=== PATIENT | female | born 1995 | race Caucasian/White ===

== ENCOUNTER 2018-04-30 13:35 | Observation (INO) | payer SELFPAY ==
[~2018-04-30] VITALS: Ht 160 cm; Wt 59.9 kg
[2018-04-30 15:00] LABS: Urine Bacteria MANY /hpf (None Seen); Urine Blood Negative /uL (Negative); Urine Hyaline Cast FEW /lpf (0 - 2); Urine Mucus FEW (None Seen); Urine Specific Gravity 1.023 (1.001-1.035); Urine WBC 21 /hpf (0 - 5)
[2018-04-30] MEDS ORDERED: DOXY25TA9 PO (15:11)
[2018-04-30 15:15] LABS: Alcohol, Urine < 3.0 mg/dL (0-5); Amphetamine Screen, Urine NEGATIVE (NEGATIVE); Barbiturate Scree,Urine NEGATIVE (NEGATIVE); Benzodiazephine Screen, Urine NEGATIVE (NEGATIVE); Cannabinoid Screen, Urine POSITIVE (NEGATIVE); Cocaine Screen, Urine NEGATIVE (NEGATIVE); Phencyclidine Screen, Urine NEGATIVE (NEGATIVE)
[2018-04-30 15:22] LABS: Opiate Scree,Urine NEGATIVE (NEGATIVE)
[2018-04-30] MEDS ORDERED: SODIUM CHLORIDE 0.9% 1,000 ML IV ONE (15:30)
[2018-04-30] MEDS ORDERED: cefTRIAXone SOD 1,000 MG VL IM ONE (15:30)
[2018-04-30] MEDS ORDERED: SODIUM CHLORIDE 0.9% 500 ML IV ONE (15:30)
[2018-04-30] MEDS ORDERED: cefTRIAXone 1GM/50ML D5W 50 ML IV ONE (15:30)
== END 2018-04-30 17:15 | disposition home or self-care (01) | DRG 833 ==
LOC: LDRP 13:35
PROVIDERS: ADMIT Specialist; ATTEND Specialist
DX: O23.42 Unspecified infection of urinary tract in pregnancy, second trimester (principal); O26.892 Other specified pregnancy related conditions, second trimester; R10.30 Lower abdominal pain, unspecified; Z87.891 Personal history of nicotine dependence; Z3A.27 27 weeks gestation of pregnancy
CPT/HCPCS: 59025; 76805; 80307; 81001; 81002; 96365; G0378; J0696; J7030

== ENCOUNTER → 2018-06-02 | Outpatient (CLI) | payer MEDICAID ==
[~2018-06-02] MED LIST: DOXY25TA9 PO
[2018-06-02 07:42] LABS: Basophils # (auto) 0.1 uL; Basophils % (auto) 0.8 % (0.0-2.0); Eosinophils # (auto) 0.1 uL; Eosinophils % (auto) 1.1 % (0.0-7.0); Hematocrit 39.4 % (36.0-46.0); Hemoglobin 13.3 g/dL (12.2-16.2); Lymphocytes # (auto) 2.5 uL; Lymphocytes % (auto) 23.3 % (10.0-50.0); Mean Corpuscular Hemoglobin 32.3 pg (28.0-32.0); Mean Corpuscular Hgb Conc. 33.7 g/dL (32.0-36.0); Mean Corpuscular Volume 95.8 fL (80.0-100.0); Monocytes # (auto) 0.6 uL; Monocytes % (auto) 6.1 % (0.0-12.0); Neutrophils # (auto) 7.3 uL; Neutrophils % (auto) 68.7 % (37.0-80.0); Platelet Count (auto) 242 10^3/uL (140-450); Red Blood Cells 4.11 10^6/uL (4.0-5.20); Red Cell Distribution Width 13.4 % (11.8-14.3); White Blood Cell 10.6 10^3/uL (4.4-10.8)
[2018-06-02 09:02] LABS: Alcohol, Urine < 3.0 mg/dL (0-5); Amphetamine Screen, Urine NEGATIVE (NEGATIVE); Barbiturate Scree,Urine NEGATIVE (NEGATIVE); Benzodiazephine Screen, Urine NEGATIVE (NEGATIVE); Cannabinoid Screen, Urine POSITIVE (NEGATIVE); Cocaine Screen, Urine NEGATIVE (NEGATIVE); Opiate Scree,Urine NEGATIVE (NEGATIVE); Phencyclidine Screen, Urine NEGATIVE (NEGATIVE)
[2018-06-02 09:19] LABS: RUBELLA Positive
== END | disposition home or self-care (01) ==
LOC: LAB 07:26
PROVIDERS: ATTEND Obstetrics & Gynecology
DX: O99.810 Abnormal glucose complicating pregnancy (principal); Z3A.31 31 weeks gestation of pregnancy
CPT/HCPCS: 36415; 80307; 82951; 84144; 84702; 85025; 86703; 86762; 86850; 86900; 86901; 87086; 87340

== ENCOUNTER → 2018-06-30 | Outpatient (CLI) | payer MEDICAID ==
[2018-06-30 16:23] LABS: Basophils # (auto) 0 uL; Basophils % (auto) 0.3 % (0.0-2.0); Eosinophils # (auto) 0.1 uL; Eosinophils % (auto) 1.7 % (0.0-7.0); Hematocrit 40.4 % (36.0-46.0); Hemoglobin 13.4 g/dL (12.2-16.2); Lymphocytes # (auto) 2.1 uL; Mean Corpuscular Hemoglobin 31.1 pg (28.0-32.0); Mean Corpuscular Hgb Conc. 33.2 g/dL (32.0-36.0); Mean Corpuscular Volume 93.7 fL (80.0-100.0); Monocytes # (auto) 0.7 uL; Monocytes % (auto) 7.9 % (0.0-12.0); Neutrophils # (auto) 5.8 uL; Neutrophils % (auto) 66.1 % (37.0-80.0); Nucleated Red Blood Cells % 0.1 %; Platelet Count (auto) 230 10^3/uL (140-450); Red Blood Cells 4.31 10^6/uL (4.0-5.20); Red Cell Distribution Width 13.1 % (11.8-14.3); White Blood Cell 8.8 10^3/uL (4.4-10.8)
== END | disposition home or self-care (01) ==
LOC: LAB 16:11
PROVIDERS: ATTEND Obstetrics & Gynecology
DX: Z34.03 Encounter for supervision of normal first pregnancy, third trimester (principal); Z3A.35 35 weeks gestation of pregnancy
CPT/HCPCS: 36415; 85025; 87081

== ENCOUNTER 2018-07-18 17:30 | Observation (INO) | payer MEDICAID ==
[2018-07-18 18:29] LABS: Urine Bacteria MOD /hpf (None Seen); Urine Blood Negative /uL (Negative); Urine Specific Gravity 1.007 (1.001-1.035); Urine WBC 17 /hpf (0 - 5)
[2018-07-18 18:37] LABS: Alcohol, Urine < 3.0 mg/dL (0-5); Amphetamine Screen, Urine NEGATIVE (NEGATIVE); Barbiturate Scree,Urine NEGATIVE (NEGATIVE); Benzodiazephine Screen, Urine NEGATIVE (NEGATIVE); Cannabinoid Screen, Urine POSITIVE (NEGATIVE); Cocaine Screen, Urine NEGATIVE (NEGATIVE); Opiate Scree,Urine NEGATIVE (NEGATIVE); Phencyclidine Screen, Urine NEGATIVE (NEGATIVE)
== END 2018-07-18 19:06 | disposition home or self-care (01) | DRG 566 ==
LOC: LDRP 17:30
PROVIDERS: ADMIT Specialist; ATTEND Specialist
DX: O42.92 Full-term premature rupture of membranes, unspecified as to length of time between rupture and onset of labor (principal); O99.323 Drug use complicating pregnancy, third trimester; O21.2 Late vomiting of pregnancy; F12.90 Cannabis use, unspecified, uncomplicated; O99.343 Other mental disorders complicating pregnancy, third trimester; F32.9 Major depressive disorder, single episode, unspecified; Z87.891 Personal history of nicotine dependence; Z3A.38 38 weeks gestation of pregnancy
CPT/HCPCS: 59025; 76815; 80307; 81001; 81002; G0378

== ENCOUNTER 2018-07-25 10:06 | Observation (INO) | payer MEDICAID ==
[2018-07-25] MEDS ORDERED: PREN-96 PO (11:32)
== END 2018-07-25 11:20 | disposition home or self-care (01) | DRG 566 ==
LOC: LDRP 10:06
PROVIDERS: ADMIT Obstetrics & Gynecology; ATTEND Obstetrics & Gynecology
DX: O48.0 Post-term pregnancy (principal); O99.323 Drug use complicating pregnancy, third trimester; O62.9 Abnormality of forces of labor, unspecified; O99.343 Other mental disorders complicating pregnancy, third trimester; F32.9 Major depressive disorder, single episode, unspecified; F12.90 Cannabis use, unspecified, uncomplicated; Z3A.40 40 weeks gestation of pregnancy; Z87.891 Personal history of nicotine dependence
CPT/HCPCS: 59025; 76818; 81002; G0378

== ENCOUNTER 2018-07-27 11:19 | Observation (INO) | payer MEDICAID ==
[~2018-07-27 11:19] MED LIST changes: -DOXY25TA9 PO; +PREN-96 PO
== END 2018-07-27 12:55 | disposition home or self-care (01) | DRG 566 ==
LOC: LDRP 11:19
PROVIDERS: ADMIT Obstetrics & Gynecology; ATTEND Obstetrics & Gynecology
DX: O48.0 Post-term pregnancy (principal); O99.323 Drug use complicating pregnancy, third trimester; O62.9 Abnormality of forces of labor, unspecified; O99.343 Other mental disorders complicating pregnancy, third trimester; F32.9 Major depressive disorder, single episode, unspecified; F12.90 Cannabis use, unspecified, uncomplicated; Z87.891 Personal history of nicotine dependence; Z3A.40 40 weeks gestation of pregnancy
CPT/HCPCS: 59025; 76818; 81002; G0378

== ENCOUNTER 2018-07-28 22:05 | Inpatient (IN) | payer MEDICAID | END 2018-07-30 17:21 | disposition home or self-care (01) | LOC: LDRP 22:05 | PROC: 3E033VJ Introduction of Other Hormone into Peripheral Vein, Percutaneous Approach (ICD-10-PCS; principal; ~2018-07-28) | PROC: 10E0XZZ Delivery of Products of Conception, External Approach (ICD-10-PCS; ~2018-07-28) | DX: O80 Encounter for full-term uncomplicated delivery (principal); Z37.0 Single live birth; Z3A.40 40 weeks gestation of pregnancy ==

== ENCOUNTER 2019-04-14 14:57 | Emergency (ER) | payer MEDICAID ==
[~2019-04-14] VITALS: Ht 157.5 cm; Wt 53.1 kg
[2019-04-14 16:27] LABS: Basophils # (auto) 0.1 uL; Eosinophils # (auto) 1.1 uL; Eosinophils % (auto) 11.2 % (0.0-7.0); Hemoglobin 14.5 g/dL (12.2-16.2); Lymphocytes # (auto) 2.3 uL; Lymphocytes % (auto) 22.9 % (10.0-50.0); Mean Corpuscular Hemoglobin 32.6 pg (28.0-32.0); Mean Corpuscular Hgb Conc. 34.5 g/dL (32.0-36.0); Mean Corpuscular Volume 94.4 fL (80.0-100.0); Monocytes # (auto) 0.7 uL; Monocytes % (auto) 6.8 % (0.0-12.0); Neutrophils # (auto) 5.7 uL; Neutrophils % (auto) 58.1 % (37.0-80.0); Platelet Count (auto) 292 10^3/uL (140-450); Red Blood Cells 4.45 10^6/uL (4.0-5.20); Red Cell Distribution Width 11.9 % (11.8-14.3); White Blood Cell 9.9 10^3/uL (4.4-10.8)
[2019-04-14 16:53] LABS: Albumin 3.1 g/dL (3.4-5.0); Amylase 28 U/L (25-115); Anion Gap 4 (5-15); Blood Urea Nitrogen 8 mg/dL (7-18); Calcium 8.8 mg/dL (8.5-10.1); Carbon Dioxide 28 mmol/L (21-32); Chloride 108 mmol/L (98-107); Glucose 107 mg/dL (74-106); Lipase 48 U/L (73-393); Sodium 140 mmol/L (136-145)
[2019-04-14 16:59] LABS: Alanine Aminotransferase 17 U/L (13-56); Alkaline Phosphatase 88 U/L (45-117); Aspartate Aminotransferase 12 U/L (15-37); BUN/Creatinine Ratio 8.7; Bilirubin, Total 0.4 mg/dL (0.2-1.0); GFR African American 96 mL/min; GFR Non-African American 79 mL/min; Total Protein 7.3 g/dL (6.4-8.2)
[2019-04-14 21:04] VITALS: BP 110/87
== END 2019-04-14 21:04 | disposition home or self-care (01) ==
LOC: ER 15:05
DX: J18.9 Pneumonia, unspecified organism (principal); F17.210 Nicotine dependence, cigarettes, uncomplicated; Z87.442 Personal history of urinary calculi
CPT/HCPCS: 36415; 71046; 74176; 80053; 82150; 83690; 84484; 85025; 93005

== ENCOUNTER 2024-08-05 22:33 | Inpatient (IN) | payer MEDICAID ==
[~2024-08-05] VITALS: Ht 157.5 cm; Wt 52.8 kg
[~2024-08-05 22:33] MED LIST changes: +APIX5TAB PO; -PREN-96 PO
[2024-08-05 23:13] LABS: Urine Bacteria None Seen /hpf (None Seen)
[2024-08-05 23:29] LABS: Urine Blood 1+ /uL (Negative); Urine Clarity Turbid (Clear); Urine Color Yellow (Yellow); Urine Mucus FEW (None Seen); Urine Protein, UAD 3+ (Negative); Urine Squamous Epithelial Cell FEW /hpf (<5); Urine Urobilinogen Normal (Negative); Urine WBC 39 /HPF (0-5)
--- NOTE | 2024-08-05 23:54 | DVH ---
Right lower extremity venous duplex Clinical History: Patient has pain at medial thigh right leg Comparison: None Technique: Duplex Doppler evaluation of the deep venous system of the right lower extremity from the common femo ral vein to the popliteal vein including color Doppler and spectral/pulsed waveform analysis was perf ormed. Findings: The common femoral vein demonstrates appropriate compressibility and waveform variability. There is compressibility/patency of the great saphenous vein at the proximal thigh. The femoral vein demonstrates appropriate compressibility and waveform variability. The deep femoral vein demonstrates appropriate compressibility and waveform variability. The popliteal vein demonstrates appropriate compressibility and waveform variability. There is normal compressibility at the tibioperoneal trunk. Occlusive thrombus is seen in the great saphenous vein Impression: 1. Occlusive thrombus is seen in the great saphenous vein.
[2024-08-06] VITALS (7 sets, daily range): BP systolic 101–109; BP diastolic 62–73; PULSE 62–82; RESP 16–23; TEMP 97.6–98.8; O2SAT 96–99
--- NOTE | 2024-08-06 00:10 | ED.PDOC ---
Musculoskeletal HPI Comments This patient is a pleasant 29-year-old female who arrives the ED today for evaluation of right medial thigh concerns for the past day and a half. Patient states she has a unusual rash with the pain. Patient states that this is concerning as she has had a DVT in the other leg that ambulated this presentation at the site. Additionally, patient states that she may be . Patient denies any fever nausea or vomiting. Vital signs were stable on arrival. Chief Complaint: Lower Extremity Time Seen by MD: 22:34 Reviewed Notes: Nurses Notes Allergies: Coded Allergies: NO KNOWN ALLERGIES (Unverified , 07/28/18) Home Meds Active Scripts Apixaban Base (ELIQUIS) 5 Mg Tab, 5 MG PO BID for 30 Days, #60 TAB Prov:ANGE HURT MD 06/03/19 Information Source: Patient, Friend Mode of Arrival: Ambulatory Location: Right Extremity Location: Leg Timing: Days Prehospital treatment: None Severity: Moderate Able to Move Extremity: Yes Bear Weight: Fully Pain: Mild Hand Dominance: Right Mechanism: Spontaneous Circumstances: Spontaneous Onset of Symptoms: Spontaneous DVT Risk Factors: DVT Past Medical History PAST MEDICAL HISTORY: Kidney Stones Past Medical History (Other): DVT Surgical History: Denies all surgeries BOWLING PIN REFINISHER History: No Pertinent BOWLING PIN REFINISHER History Family History Family History: Family hx of DM, Family hx of Cancer Social History Smoker: Cigarettes Alcohol: Occasionally Drugs: Marijuana Lives In: Home Constitutional: denies: chills, diaphoresis, fatigue, fever, malaise, sweats, weakness, others EENTM: denies: blurred vision, double vision, ear bleeding, ear discharge, ear drainage, ear pain, ear ringing, eye pain, eye redness, hearing loss, mouth pain, mouth swelling, nasal discharge, nose bleeding, nose congestion, nose pain, photophobia, tearing, throat pain, throat swelling, voice changes, others Respiratory: denies: cough, hemoptysis, orthopnea, SOB at rest, shortness of breath, SOB with excertion, stridor, wheezing, others Cardiovascular: denies: chest pain, dizzy spells, diaphoresis, Dyspnea on exertion, edema, irregular heart beat, left arm pain, lightheadedness, palpitations, PND, syncope, others Gastrointestinal: denies: abdomen distended, abdominal pain, blood streaked bowels, constipated, diarrhea, dysphagia, difficulty swallowing, hematemesis, melena, nausea, poor appetite, poor fluid intake, rectal bleeding, rectal pain, vomiting, others Genitourinary: denies: abnormal vagina bleeding, burning, dyspareunia, dysuria, flank pain, frequency, hematuria, incontinence, pain, , vagina discharge, urgency, others Neurological: denies: dizziness, fainting, headache, left sided numbness, left sided weakness, numbness, paresthesia, pre-existing deficit, right sided numbness, right sided weakness, seizure, speech problems, tingling, tremors, weakness, others Musculoskeletal: reports: others (Right medial thigh pain); denies: back pain, gout, joint pain, joint swelling, muscle pain, muscle stiffness, neck pain Integumetry: denies: bruises, change in color, change in hair/nails, dryness, laceration, lesions, lumps, rash, wounds, others Allergic/Immunocompromised: denies: Difficulty Healing, Frequent Infections, Hives, Itching, others Hematologic/Lymphatic: denies: anemia, blood clots, easy bleeding, easy bruising, swollen glands, others Endocrine: denies: excessive hunger, excessive sweating, excessive thirst, excessive urination, flushing, intolerance to cold, intolerance to heat, unexplained weight gain, unexplained weight loss, others Psychiatric: denies: anxiety, bipolar disorder, depression, hopeless, panic disorder, schizophrenia, sleepless, suicidal, others Physical Exam General Appearance: Mild Distress (Due to thigh pain and rash concerns), Normal HEENT: Normal ENT Inspection, Pharynx Normal, TMs Normal Neck: Full Range of Motion, Non-Tender, Normal, Normal Inspection Respiratory: Chest Non-Tender, Lungs Clear, No Accessory Muscle Use, No Respiratory Distress, Normal Breath Sounds Cardiovascular: No Edema, No JVD, No Murmur, No Gallop, Normal Peripheral Pulses, Regular Rate/Rhythm Breast Exam: Deferred Gastrointestinal: No Organomegaly, Non Tender, No Pulsatile Mass, Normal Bowel Sounds, Soft Genitalia: Deferred Pelvic: Deferred Rectal: Deferred Extremities: Other (Patient displays a mildly serpiginous oblong rash of the right medial thigh with tenderness throughout. No lymphangitis noted. No definitive signs of infection) Neurologic: Alert, No Motor Deficits, Normal Affect, Normal Mood, No Sensory Deficits Cerebellar Function: Normal Reflexes: Normal Skin: Dry, Normal Color, Warm Lymphatic: No Adenopathy Was a procedure done? Was a procedure done?: No Differential Diagnosis EXT Differential Diagnosis: Deep Vein Thrombosis, Strain, Other (Livedo reticularis, contusion, UTI, ) X-Ray, Labs, Meds, VS Vital Signs Date Time Temp Pulse Resp B/P (MAP) Pulse Ox O2 Delivery O2 Flow Rate FiO2 08/05/24 23:14 99.7 105 20 106/50 (68) 97 99.7 Lab Test 08/05/24 23:01 Range/Units Urine Color Yellow Yellow Urine Clarity Turbid H Clear Urine pH 6.0 5.0-9.0 Urine Specific [place] 1.030 1.001-1.035 Urine Protein 3+ H Negative Urine Ketones Negative Negative Urine Blood 1+ H Negative /uL Urine Nitrite Negative Negative Urine Bilirubin Negative Negative Urine Urobilinogen Normal Negative mg/dL Urine Leukocyte Esterase 1+ Negative /uL Urine RBC 9 0 - 4 /hpf Urine Microscopic WBC 39 H 0-5 /HPF Urine Squamous Epithelial Cells Few <5 /hpf Urine Bacteria None seen None Seen /hpf Urine Mucus Few None Seen Urine Glucose Normal Normal mg/dL Urine Test Positive Negative X-Ray, Labs, Meds, VS Comment All studies performed the ED were evaluated by me personally. Ultrasound confirmed a saphenous vein occlusion of the right medial thigh. Additional studies confirmed a urinary tract infection and positive . I discussed the case with Dr. Riggins in both he and I did not feel safe on a outpatient oral discharge medication as none seem to be safe for . Patient has been dispensed one dose of Lovenox and will be admitted for overnight evaluation and form layer consultation in the morning for proper outpatient blood thinner management. Patient will follow up with primary care provider for continued management once discharge. Time of 1ST Reevaluation: 00:08 Reevaluation 1ST: Improved Consultation: PCP Patient Education/Counseling: Diagnosis, Treatment Family Education/Counseling: Diagnosis, Treatment Departure 1 Departure Time of Disposition: 00:09 Impression: Primary Impression: Saphenous vein occlusion, right Additional Impressions: UTI (urinary tract infection) Disposition: 09 ADMITTED INPATIENT Condition: Stable Discharged With: Self, Friend Critical Care Note Critical Care Time?: No Stability Stability form required: No Heart Score Heart Score: Heart Score Response (Comments) Value History N/A 0 EKG N/A 0 Age N/A 0 Risk Factors N/A 0 Troponin N/A 0 Total 0 CAYETANO APARICIO PAC Aug 06, 2024 00:10
[2024-08-06] MEDS: CEPHALEXIN 250 MG CAP PO ONE (01:46)
[2024-08-06] MEDS: ENOXAPARIN SOD 40 MG/0.4 ML SYRINGE SC ONE (01:48)
[2024-08-06] MEDS: ACETAMINOPHEN 325 MG TAB PO ONE (06:29)
[2024-08-06] MEDS: ENOXAPARIN SOD 100 MG/1 ML SYRINGE SC SCH (10:26)
[2024-08-06] MEDS ORDERED: HYDR-3682 PO (11:15)
[2024-08-06] MEDS ORDERED: ARIP10TA29 PO (11:15)
[2024-08-06] MEDS ORDERED: GABA-1250 PO (11:15)
[2024-08-06] MEDS ORDERED: HYDROcodone-ACET 5/325MG TAB PO PRN (11:15)
[2024-08-06] MEDS ORDERED: MORPHINE SULFATE INJ 2 MG/ml SYRG IV PRN (11:15)
[2024-08-06] MEDS ORDERED: ACETAMINOPHEN 325 MG TAB PO PRN (11:15)
[2024-08-06] MEDS ORDERED: ONDANSETRON HCL 4 MG/2 ML VIAL IV PRN (11:15)
--- NOTE | 2024-08-06 11:21 | DVHHP2 ---
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 Patient reports the anterior right thigh has been painful 5/10 not like and constant. Upon examination patient points to where the pain started from which is between her right knee and right pelvic area. Patient reports that she was on Eliquis years ago but stopped taking it for her DVT. Patient denies any chest pain, recent trauma or injury, shortness of breath, fever, chills, lightheadedness, weakness, dizziness, recent travels, recent sick contacts, , abdominal pain, nausea, vomiting, or diarrhea. Past Medical History DVT in 2020 right lower extremity Past Surgical History: None Family History: Cancer, DM, Other (Dad with diabetes and breast cancer and grandmother with breast cancer) Smoke: <1 pack per day (Vapes) ALCOHOL: occassional Drugs: Marijuana Lives: with Family Domestic Violence: Neg Review of Systems Musculoskeletal: leg pain Allergies: Coded Allergies: NO KNOWN ALLERGIES (Unverified , 07/28/18) Medications Current Medications Medications Dose Ordered Sig/Segundo Route Start Time Stop Time Status Last Admin Dose Admin Enoxaparin Sodium 50 mg Q12HR SC 08/06/24 10:00 08/06/24 10:26 50 MG Ceftriaxone Sodium 50 ml @ 100 mls/hr DAILY@09 IV 08/06/24 11:15 UNV Acetaminophen/ Hydrocodone Bitart 1 tab Q4HP PRN PO 08/06/24 11:15 UNV Ondansetron HCl 4 mg Q4HP PRN IV 08/06/24 11:15 UNV Acetaminophen 650 mg Q6HP PRN PO 08/06/24 11:15 UNV Morphine Sulfate 2 mg Q4HPRN PRN IV 08/06/24 11:15 UNV Exam Vital Signs Vital Signs Date Time Temp Pulse Resp B/P (MAP) Pulse Ox O2 Delivery O2 Flow Rate FiO2 08/06/24 10:30 98.2 78 21 105/63 (77) 98 98.2 08/06/24 07:30 Room Air* 0 21 General Appearance: Alert, Oriented X3, Cooperative, No acute distress HEENT: Atraumatic, PERRLA, EOMI, Mucous membr. moist/pink Respiratory: Clear to auscultation, Normal air movement Cardiovascular: Normal S1, Normal S2, No murmurs Abdominal: Normal bowel sounds, Soft, No tenderness, No hepatospenomegaly, No masses Extremities: No clubbing, No cyanosis, No edema, Normal pulses Skin: No significant lesion Neuro: Normal speech, Strength at 5/5 X4 ext, Normal tone, Sensation intact Psych/Mental Status: Mental status NL, Mood NL Labs/Xrays Labs Test 08/05/24 23:01 Range/Units Urine Color Yellow Yellow Urine Clarity Turbid H Clear Urine pH 6.0 5.0-9.0 Urine Specific [place] 1.030 1.001-1.035 Urine Protein 3+ H Negative Urine Ketones Negative Negative Urine Blood 1+ H Negative /uL Urine Nitrite Negative Negative Urine Bilirubin Negative Negative Urine Urobilinogen Normal Negative mg/dL Urine Leukocyte Esterase 1+ Negative /uL Urine RBC 9 0 - 4 /hpf Urine Microscopic WBC 39 H 0-5 /HPF Urine Squamous Epithelial Cells Few <5 /hpf Urine Bacteria None seen None Seen /hpf Urine Mucus Few None Seen Urine Glucose Normal Normal mg/dL Urine Test Positive Negative Right lower extremity venous duplex Clinical History: Patient has pain at medial thigh right leg Comparison: None Technique: Duplex Doppler evaluation of the deep venous system of the right lower extremity from the common femoral vein to the popliteal vein including color Doppler and spectral/pulsed waveform analysis was performed. Findings: The common femoral vein demonstrates appropriate compressibility and waveform variability. There is compressibility/patency of the great saphenous vein at the proximal thigh. The femoral vein demonstrates appropriate compressibility and waveform variability. The deep femoral vein demonstrates appropriate compressibility and waveform variability. The popliteal vein demonstrates appropriate compressibility and waveform variability. There is normal compressibility at the tibioperoneal trunk. Occlusive thrombus is seen in the great saphenous vein Impression: 1. Occlusive thrombus is seen in the great saphenous vein. Assessment/Plan Assessment/Plan Assessment Acute cystitis Right lower extremity pain secondary to DVT Positive Plan Admit to med surge Antiemetics Pain management IV antibiotics-ceftriaxone HCG Right lower extremity venous study Avoid toxic medications Lovenox Home medications Diet PUD prophylaxis-not indicated no history of GERD or GI bleed Discussed plan of care with patient and nurse Consider electrical linesworker consult if compromise Plan discussed with: Patient My Orders Orders - GILES MOJICA Procedure Category Date Status Time Enoxaparin Sodium PHA 08/06/24 In Process (Lovenox) 10:00 Ceftriaxone 1gm/50ml PHA 08/06/24 Logged D5w (Rocephin) 11:15 Admit ADMIT 08/06/24 Transmitted 11:12 Allergies NATAN 08/06/24 In Process 11:12 Code Status CODE 08/06/24 Transmitted 11:12 Hydrocodone-Acet PHA 08/06/24 Logged 5/325mg Tab ([place] 11:15 Ondansetron Hcl PHA 08/06/24 Logged (Zofran) 11:15 Complete Blood Count LAB 08/07/24 Verified 04:00 Comprehensive LAB 08/07/24 Verified Metabolic Panel 04:00 Cardiac DIET 08/06/24 Transmitted Diet-2gna,Lofat,Lochol Lunch Acetaminophen Tablet PHA 08/06/24 Logged (Tylenol Tablet) 11:15 Morphine Sulfate PHA 08/06/24 Logged Injection 11:15 Date of Service: Aug 06, 2024 Billing Provider: GILES MOJICA Common Visit Codes: [id number] INP/OBS CARE (HIGH) GILES MOJICA Aug 06, 2024 11:21
[2024-08-06] MEDS: cefTRIAXone 1GM/50ML D5W 50 ML IV SCH (12:02)
[2024-08-06] MEDS: ARIPIPRAZOLE 10 MG PO SCH (12:02)
[2024-08-06] MEDS: hydrOXYzine 25 MG TAB or CAP PO SCH (13:41)
[2024-08-06] MEDS: GABAPENTIN 300 MG CAP PO SCH (13:41)
[2024-08-07 05:00] VITALS: BP 96/40; PULSE 67; RESP 18; TEMP 97.9; O2SAT 97
[2024-08-07 08:30] VITALS: BP 104/53; PULSE 67; RESP 16; TEMP 97.9; O2SAT 98
[2024-08-07 08:31] LABS: Basophils # (auto) 0.1 10 ^3/uL (0-0.2); Basophils % (auto) 0.9 % (0.0-2.0); Eosinophils # (auto) 0.6 10 ^3/uL (0-0.8); Eosinophils % (auto) 8.6 % (0.0-7.0); Hematocrit 40.3 % (36.0-46.0); Hemoglobin 13.9 g/dL (12.2-16.2); Lymphocytes # (auto) 2.7 10 ^3/uL (0.4-5.4); Lymphocytes % (auto) 36.5 % (10.0-50.0); Mean Corpuscular Hemoglobin 33.2 pg (28.0-32.0); Mean Corpuscular Hgb Conc. 34.5 g/dL (32.0-36.0); Mean Corpuscular Volume 96.3 fL (80.0-100.0); Monocytes # (auto) 0.5 10 ^3/uL (0-1.3); Monocytes % (auto) 6.9 % (0.0-12.0); Neutrophils # (auto) 3.5 10 ^3/uL (1.6-8.6); Neutrophils % (auto) 47.1 % (37.0-80.0); Platelet Count (auto) 212 10^3/uL (140-450); Red Blood Cells 4.19 10^6/uL (4.0-5.20); Red Cell Distribution Width 12.7 % (11.8-14.3); White Blood Cell 7.4 10^3/uL (4.4-10.8)
[2024-08-07 08:41] LABS: Alanine Aminotransferase < 9 U/L (7-40); Alkaline Phosphatase 59 U/L (46-116); Anion Gap 7 (5-15); Aspartate Aminotransferase 12 U/L (13-40); BUN/Creatinine Ratio 12.7 (10.0-20.0); Bilirubin, Total 0.6 mg/dL (0.2-1.0); Blood Urea Nitrogen 8 mg/dL (9-23); Calcium 8.5 mg/dL (8.7-10.4); Carbon Dioxide 25 mmol/L (20-31); Chloride 108 mmol/L (98-107); Glucose 80 mg/dL (74-106); Potassium 3.8 mmol/L (3.5-5.1); Sodium 140 mmol/L (136-145); Total Protein 5.1 g/dL (5.7-8.2)
[2024-08-07 12:30] VITALS: BP_SYST 101; BP_SYST 120; BP_DIAS 66; BP_DIAS 72; PULSE 75; RESP 16; TEMP 98.2; O2SAT 97
--- NOTE | 2024-08-07 13:04 | DVHPN2 ---
Progress Note - Dictate Date Seen: Aug 07, 2024 Medical Necessity Reason Pt with a Central, PICC or Fol: No Subjective Admitted here with lower extremity DVT. Patient has prior history of DVT was apparently on Eliquis and stopped about a year ago. Currently she is which she apparently found out recently. Receiving Lovenox subQ b.i.d.. vital signs Vital Sign Date Time Temp Pulse Resp B/P (MAP) Pulse Ox O2 Delivery O2 Flow Rate FiO2 08/07/24 08:30 97.9 67 16 104/53 (70) 98 97.9 08/07/24 08:15 Room Air* 0 21 Total Intake and Output 08/06/24 08/06/24 08/07/24 15:00 23:00 07:00 Intake Total 750 ml Output Total 325 ml Balance 425 ml medications Current Medications Medications Dose Ordered Sig/Segundo Route Start Time Stop Time Status Last Admin Dose Admin Enoxaparin Sodium 50 mg Q12HR SC 08/06/24 10:00 08/07/24 08:55 50 MG Ceftriaxone Sodium 50 ml @ 100 mls/hr DAILY@09 IV 08/06/24 11:15 08/07/24 08:56 100 MLS/HR Ondansetron HCl 4 mg Q4HP PRN IV 08/06/24 11:15 Acetaminophen 650 mg Q6HP PRN PO 08/06/24 11:15 objective Alert awake oriented supple no JVD. Heart regular rate and rhythm S1-S2. Lungs fair air movement without rales wheezes. Abdomen soft nontender positive bowel sounds. Extremities no edema positive distal pedal pulses. Neurologically no focal deficits. laboratory and microbiology Laboratory Tests 08/07/24 07:05 Test 08/07/24 07:05 Range/Units Serum Glucose 80 74-106 mg/dL Problems(with codes): (1) Saphenous vein occlusion, right (2) DVT (deep vein thrombosis) in (3) Plan discussed with: Patient Date of Service: Aug 07, 2024 Billing Provider: DARREL RUIZ MD Common Visit Codes: [id number] INP/OBS CARE(MOD) DARREL RUIZ MD Aug 07, 2024 13:04
[2024-08-07 16:30] VITALS: BP 120/78; PULSE 63; RESP 16; TEMP 98.1; O2SAT 97
[2024-08-07 20:00] VITALS: PULSE 64; RESP 17; O2SAT 98
[2024-08-07 21:00] VITALS: BP 111/66; PULSE 64; RESP 17; TEMP 98.4; O2SAT 98
[2024-08-08] VITALS (7 sets, daily range): BP systolic 96–131; BP diastolic 52–70; PULSE 60–84; RESP 14–17; TEMP 36.8; O2SAT 97–100
[2024-08-08 10:41] LABS: Hepatitis B Surface Antigen Negative (Negative); Hepatitis C Antibody Negative (Negative)
[2024-08-08] MEDS ORDERED: ENO100SY SC (16:32)
[2024-08-08] MEDS ORDERED: PREN-96 PO (16:33)
--- NOTE | 2024-08-08 16:34 | DVHDS2 ---
Discharge Summary Date of Admission Aug 06, 2024 at 11:12 Date of Discharge: Aug 08, 2024 Labs/Diagnostic Data: Laboratory Results Test 08/08/24 13:24 08/07/24 07:05 08/06/24 17:54 08/05/24 23:01 Beta HCG, Quantitative 64705.2 mIU/mL (1.5-4.2) White Blood Count 7.4 10^3/uL (4.4-10.8) Red Blood Count 4.19 10^6/uL (4.0-5.20) Hemoglobin 13.9 g/dL (12.2-16.2) Hematocrit 40.3 % (36.0-46.0) Mean Corpuscular Volume 96.3 fL (80.0-100.0) Mean Corpuscular Hemoglobin 33.2 pg (28.0-32.0) Mean Corpuscular Hemoglobin Concent 34.5 g/dL (32.0-36.0) Red Cell Distribution Width 12.7 % (11.8-14.3) Platelet Count 212 10^3/uL (140-450) Mean Platelet Volume 8.5 fL (6.9-10.8) Neutrophils (%) (Auto) 47.1 % (37.0-80.0) Lymphocytes (%) (Auto) 36.5 % (10.0-50.0) Monocytes (%) (Auto) 6.9 % (0.0-12.0) Eosinophils (%) (Auto) 8.6 % (0.0-7.0) Basophils (%) (Auto) 0.9 % (0.0-2.0) Neutrophils # (Auto) 3.5 10 ^3/uL (1.6-8.6) Lymphocytes # (Auto) 2.7 10 ^3/uL (0.4-5.4) Monocytes # (Auto) 0.5 10 ^3/uL (0-1.3) Eosinophils # (Auto) 0.6 10 ^3/uL (0-0.8) Basophils # (Auto) 0.1 10 ^3/uL (0-0.2) Nucleated Red Blood Cells 0.0 % Sodium Level 140 mmol/L (136-145) Potassium Level 3.8 mmol/L (3.5-5.1) Chloride Level 108 mmol/L (98-107) Carbon Dioxide Level 25 mmol/L (20-31) Anion Gap 7 (5-15) Blood Urea Nitrogen 8 mg/dL (9-23) Creatinine 0.63 mg/dL (0.550-1.02) Glomerular Filtration Rate Calc 122 mL/min (>90) BUN/Creatinine Ratio 12.7 (10.0-20.0) Serum Glucose 80 mg/dL (74-106) Calcium Level 8.5 mg/dL (8.7-10.4) Total Bilirubin 0.6 mg/dL (0.2-1.0) Aspartate Amino Transferase (AST) 12 U/L (13-40) Alanine Aminotransferase (ALT) < 9 U/L (7-40) Alkaline Phosphatase 59 U/L (46-116) Total Protein 5.1 g/dL (5.7-8.2) Albumin 3.0 g/dL (3.2-4.8) Hepatitis B Surface Antigen Negative (Negative) Hepatitis C Antibody Negative (Negative) Urine Color Yellow (Yellow) Urine Clarity Turbid (Clear) Urine pH 6.0 (5.0-9.0) Urine Specific [place] 1.030 (1.001-1.035) Urine Protein 3+ (Negative) Urine Ketones Negative (Negative) Urine Blood 1+ /uL (Negative) Urine Nitrite Negative (Negative) Urine Bilirubin Negative (Negative) Urine Urobilinogen Normal mg/dL (Negative) Urine Leukocyte Esterase 1+ /uL (Negative) Urine RBC 9 /hpf (0 - 4) Urine Microscopic WBC 39 /HPF (0-5) Urine Squamous Epithelial Cells Few /hpf (<5) Urine Bacteria None seen /hpf (None Seen) Urine Mucus Few (None Seen) Urine Glucose Normal mg/dL (Normal) Urine Test Positive (Negative) Other Laboratory Tests 08/07/24 07:05 Brief Hx & Hospital Course: Tatum Trevizo is a 29-year-old female with 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 Patient reports the anterior right thigh has been painful 5/10 not like and constant. Upon examination patient points to where the pain started from which is between her right knee and right pelvic area. Patient reports that she was on Eliquis years ago but stopped taking it for her DVT. Patient denies any chest pain, recent trauma or injury, shortness of breath, fever, chills, lightheadedness, weakness, dizziness, recent travels, recent sick contacts, , abdominal pain, nausea, vomiting, or diarrhea. She is admitted and started on Lovenox for her DVT. Patient is also noted to be with a positive beta HCG. Therefore it is felt patient needs to be continued on Lovenox throughout her till she delivers due to risks of warfarin or Eliquis oral anticoagulation. This is discussed with the patient at length. Otherwise while in the hospital with the Lovenox treatment her symptoms have resolved. She is getting out of bed ambulating without any symptoms. Therefore it is felt she could be safely discharged home. Patient is also started on multivitamin. She was advised to follow up with the PCP and referral to OBGYN for routine care as appropriate. I have talked with the patient regarding her hospital diagnosis, treatment she received, DVT ultrasound findings, discharge medications, discharge instructions and follow-up plan of care. She has verbalized understanding of these and agree with the care plan as outlined. Operations or Procedures Right lower extremity venous duplex Clinical History: Patient has pain at medial thigh right leg Comparison: None Technique: Duplex Doppler evaluation of the deep venous system of the right lower extremity from the common femoral vein to the popliteal vein including color Doppler and spectral/pulsed waveform analysis was performed. Findings: The common femoral vein demonstrates appropriate compressibility and waveform variability. There is compressibility/patency of the great saphenous vein at the proximal thigh. The femoral vein demonstrates appropriate compressibility and waveform variability. The deep femoral vein demonstrates appropriate compressibility and waveform variability. The popliteal vein demonstrates appropriate compressibility and waveform variability. There is normal compressibility at the tibioperoneal trunk. Occlusive thrombus is seen in the great saphenous vein Impression: 1. Occlusive thrombus is seen in the great saphenous vein. Condition at Discharge: Stable Final Diagnosis/Problems List Lower extremity DVT, Discharge Disposition: Home Discharge Instruct/Medications Diet: Regular Activity: No Restrictions, As Tolerated Follow Up/Referral: Your primary care doctor next week for management of blood clot in leg and referral to OBGYN for new and further management Medications: As prescribed New Medications: Enoxaparin Sodium (Lovenox) 100 Mg/1 Ml Inj 50 MG SC BIDBRS, #90 INJ 1 Refill Take 50 mg (0.5 mL) injection twice a day Vit W/ Ferrous Fumara ( One Daily) Daily Tab 1 TAB PO DAILY, #90 TAB 3 Refills Continued Medications: Aripiprazole (Aripiprazole) 10 Mg Tab 1 TAB PO DAILY Gabapentin (Gabapentin) 300 Mg Cap 1 CAP PO TID Discontinued Medications: Apixaban Base (Eliquis) 5 Mg Tab 5 MG PO BID for 30 Days, #60 TAB Hydroxyzine Hcl (Hydroxyzine Hcl) 25 Mg Tab 1 TAB PO TID Discharge Statement: "Patient was advised to return to the ER or call 911 if any headaches, dizziness, shortness of breath, chest pain, abdominal pain, bleeding, fevers, or worsening of medical condition. Patient was counseled about treatment plan, medications, possible side effects, patientverbalized understanding. All questions were answered to the best of my ability. This discharge took greater then 30 minutes in planning, reviewing documentation, counseling the patient, and discussing with other team members." ASSESSMENT ASSESSMENT Assessment Lower extremity DVT, Date of Service: Aug 08, 2024 Billing Provider: DARREL RUIZ MD Common Visit Codes: [id number] DISCH DAY <30MIN DARREL RUIZ MD Aug 08, 2024 16:34
== END 2024-08-08 18:20 | disposition home or self-care (01) | DRG 566 ==
LOC: ER 22:33 → OVERFLOW 08-06 11:12 → WEST WING 08-06 18:52
PROVIDERS: ADMIT Hospitalist; ATTEND Hospitalist
DX: O22.31 Deep phlebothrombosis in pregnancy, first trimester (principal); I82.431 Acute embolism and thrombosis of right popliteal vein; O23.11 Infections of bladder in pregnancy, first trimester; F17.210 Nicotine dependence, cigarettes, uncomplicated; N30.00 Acute cystitis without hematuria; Z80.3 Family history of malignant neoplasm of breast; Z83.3 Family history of diabetes mellitus; Z87.442 Personal history of urinary calculi; Z3A.00 Weeks of gestation of pregnancy not specified
CPT/HCPCS: 36415; 80053; 81001; 81025; 84702; 85025; 86803; 87340; 93971; 96372; G0378

== ENCOUNTER 2025-04-14 18:22 | Inpatient (IN) | payer MEDICAID ==
[~2025-04-14] VITALS: Ht 157.5 cm; Wt 59.2 kg
[~2025-04-14 18:22] MED LIST changes: -APIX5TAB PO; +ARIP10TA29 PO; +ENO100SY SC; +GABA-1250 PO; +PREN-96 PO
--- NOTE | 2025-04-14 19:02 | ED.PDOC ---
History of Present Illness HPI Comments 29-year-old female who came to ER for back pains. Patient has recently had the DVT 3 months ago, currently on Lovenox. Patient is just gave via normal vaginal delivery 3 weeks ago. Two days ago, patient has a sharp right lower back pain, radiating to her right shoulder, associated shortness of breath, and worsens when she lays down on her right side. Heating pad applied to the lower back helps temporality. She denies any urinary symptoms. Patient states she missed 1 dose of Lovenox, and she is concerned that she might have a blood clot again. REVIEW OF SYSTEMS: General: No fever, no chills, or fatigue HEENT: No sore throat, no earache, no congestion, no neck pain. Cardiac: No chest pain. No palpitations. Lungs: No shortness of breath, no cough. GI: No nausea, no vomiting, no diarrhea, no constipation, no abdominal pain : No dysuria, frequency, or urgency. No hematuria. Musculoskeletal: No joint pain , no joint swelling, no extremity edema. (+) back pain, (+) right shoulder pain Skin: No rash, no itching. Neuro: No headache, no dizziness, no weakness EXAM: General: Awake, alert and oriented. No acute distress. Skin: Skin in warm, dry and intact. Appropriate color for ethnicity. HEENT: The head is normocephalic and atraumatic. Conjunctivae are clear without exudates or hemorrhage. Sclera is non-icteric. EOM are intact. No signs of nystagmus. Eyelids are normal in appearance without swelling or lesions. Oral mucosa is pink and moist Neck: The neck is supple with normal range of motion. No JVD. Cardiac: Heart rate and rhythm are normal. No murmurs, gallops, or rubs are auscultated. Respiratory: No signs of respiratory distress. Lung sounds are clear in all lobes bilaterally without rales, rhonchi, or wheezes. Abdominal: Abdomen is soft, non-tender without distention. Bowel sounds are present and normoactive in all four quadrants. Extremities: Upper and lower extremities are atraumatic in appearance without deformity or edema. Neurological: The patient is awake, alert and oriented to person, place, and time with normal speech. Speech is clear. There is no facial asymmetry. Psychiatric: Appropriate mood and affect. Good judgement and insight Chief Complaint: Back Pain Time Seen by MD: 19:02 Reviewed Notes: Nurses Notes Allergies: Coded Allergies: NO KNOWN ALLERGIES (Unverified , 07/28/18) Home Meds Active Scripts Vit W/ Ferrous Fumara ( One Daily) Daily Tab, 1 TAB PO DAILY, #90 TAB 3 Refills Prov:DARREL RUIZ MD 08/08/24 Enoxaparin Sodium (Lovenox) 100 Mg/1 Ml Inj, 50 MG SC BIDBRS, #90 INJ 1 Refill Take 50 mg (0.5 mL) injection twice a day Prov:DARREL RUIZ MD 08/08/24 Reported Medications Gabapentin (Gabapentin) 300 Mg Cap, 1 CAP PO TID 08/06/24 Aripiprazole (Aripiprazole) 10 Mg Tab, 1 TAB PO DAILY 08/06/24 Information Source: Patient Mode of Arrival: Ambulatory Past Medical History PAST MEDICAL HISTORY: Kidney Stones, UTI'S Past Medical History (Other): DVT Surgical History: Denies all surgeries BODY FORMER History: No Pertinent BODY FORMER History Family History Family History: Family hx of DM, Family hx of Cancer Social History Smoker: Cigarettes Alcohol: Occasionally Drugs: Marijuana Lives In: Home Was a procedure done? Was a procedure done?: No Differential Dx Considerations may include: Anemia, electrolyte imbalance, blood clots, musculoskeletal pain, urinary tract infection X-Ray, Labs, Meds, VS Vital Signs Date Time Temp Pulse Resp B/P (MAP) Pulse Ox O2 Delivery O2 Flow Rate FiO2 04/14/25 21:40 98.3 04/14/25 20:41 98.4 120 20 120/101 (107) 95 98.4 04/14/25 19:13 120 17 95 Room Air 04/14/25 19:13 99.0 120 17 135/91 (106) 95 99.0 04/14/25 18:25 99.0 146 18 124/95 95 99.0 Lab Test 04/14/25 20:07 04/14/25 19:51 04/14/25 18:56 Range/Units Lactic Acid Level 0.6 0.4-2.0 mmol/L Urine Color Light-yellow Yellow Urine Clarity Turbid H Clear Urine pH 6.5 5.0-9.0 Urine Specific [place] 1.014 1.001-1.035 Urine Protein 3+ H Negative Urine Ketones Negative Negative Urine Blood 2+ H Negative /uL Urine Nitrite Negative Negative Urine Bilirubin Negative Negative Urine Urobilinogen Normal Negative mg/dL Urine Leukocyte Esterase 3+ Negative /uL Urine RBC 24 0 - 4 /hpf Urine Microscopic WBC 106 H 0-5 /HPF Urine Squamous Epithelial Cells Few <5 /hpf Urine Bacteria None seen None Seen /hpf Urine Hyaline Casts Few 0 - 2 /lpf Urine Glucose Normal Normal mg/dL White Blood Count 12.0 H 4.4-10.8 10^3/uL Red Blood Count 4.55 4.0-5.20 10^6/uL Hemoglobin 14.6 12.2-16.2 g/dL Hematocrit 42.5 36.0-46.0 % Mean Corpuscular Volume 93.4 80.0-100.0 fL Mean Corpuscular Hemoglobin 32.1 H 28.0-32.0 pg Mean Corpuscular Hemoglobin Concent 34.3 32.0-36.0 g/dL Red Cell Distribution Width 13.8 11.8-14.3 % Platelet Count 388 140-450 10^3/uL Mean Platelet Volume 7.6 6.9-10.8 fL Neutrophils (%) (Auto) 71.8 37.0-80.0 % Lymphocytes (%) (Auto) 20.9 10.0-50.0 % Monocytes (%) (Auto) 5.0 0.0-12.0 % Eosinophils (%) (Auto) 1.8 0.0-7.0 % Basophils (%) (Auto) 0.5 0.0-2.0 % Neutrophils # (Auto) 8.6 1.6-8.6 10 ^3/uL Lymphocytes # (Auto) 2.5 0.4-5.4 10 ^3/uL Monocytes # (Auto) 0.6 0-1.3 10 ^3/uL Eosinophils # (Auto) 0.2 0-0.8 10 ^3/uL Basophils # (Auto) 0.1 0-0.2 10 ^3/uL Nucleated Red Blood Cells 0.0 % D-Dimer, Quantitative 9.68 H 0.0-0.49 mg/L FEU Sodium Level 141 136-145 mmol/L Potassium Level 3.3 L 3.5-5.1 mmol/L Chloride Level 105 98-107 mmol/L Carbon Dioxide Level 29 20-31 mmol/L Anion Gap 7 5-15 Blood Urea Nitrogen 5 L 9-23 mg/dL Creatinine 0.57 0.550-1.02 mg/dL Glomerular Filtration Rate Calc 125 >90 mL/min BUN/Creatinine Ratio 8.8 L 10.0-20.0 Serum Glucose 102 74-106 mg/dL Calcium Level 8.5 L 8.7-10.4 mg/dL Current Medications Medications (Trade) Dose Ordered Sig/Segundo Route Start Time Stop Time Status Last Admin Sodium Chloride 1,000 ml @ 1,000 mls/hr Q1H ONCE IV 04/14/25 20:00 04/14/25 20:59 DC 04/14/25 20:52 Acetaminophen (Tylenol Tablet) 650 mg ONCE ONCE PO 04/14/25 21:30 04/14/25 21:31 DC 04/14/25 21:40 Potassium Chloride (Klor-Con Tablet) 40 meq ONCE ONCE PO 04/14/25 22:00 04/14/25 22:01 DC 04/14/25 22:22 Time of 1ST Reevaluation: 18:56 Reevaluation 1ST: Unchanged Patient Education/Counseling: Need For Follow Up Family Education/Counseling: No Family Present SEPSIS Sepsis Screen Date sepsis recognized/suspect: Apr 14, 2025 Time Sepsis recognized/suspect: 1826 Recent Procedure: No On Antibiotic Therapy: No Respiratory Rate >20: No Heart Rate >90: Yes Temp<36 C (96.8 F) or >38.3 C: No SBP <90 or MAP <65 mmHG: No New Acute Mental Status Change: No Is the patient on CPAP, BIPAP,: No Physician Orders Saline Lock (04/14/25 19:47) Ct Angio Chest Contrast (04/14/25 19:47) Blood Culture (04/14/25 19:47) Sodium Chloride 0.9% (04/14/25 21:00) Vital Signs Date Time Temp Pulse Resp B/P (MAP) Pulse Ox O2 Delivery O2 Flow Rate FiO2 04/14/25 21:40 98.3 04/14/25 20:41 98.4 120 20 120/101 (107) 95 98.4 04/14/25 19:13 120 17 95 Room Air 04/14/25 19:13 99.0 120 17 135/91 (106) 95 99.0 04/14/25 18:25 99.0 146 18 124/95 95 99.0 Laboratory Tests Test 04/14/25 18:56 04/14/25 20:07 White Blood Count 12.0 10^3/uL (4.4-10.8) H Lactic Acid Level 0.6 mmol/L (0.4-2.0) Medications Medications Dose Ordered Sig/Segundo Route Start Time Stop Time Status Last Admin Dose Admin Acetaminophen 650 mg ONCE ONCE PO 04/14/25 21:30 04/14/25 21:31 DC 04/14/25 21:40 Potassium Chloride 40 meq ONCE ONCE PO 04/14/25 22:00 04/14/25 22:01 DC 04/14/25 22:22 Sodium Chloride 1,000 ml @ 1,000 mls/hr Q1H ONCE IV 04/14/25 20:00 04/14/25 20:59 DC 04/14/25 20:52 Departure 1 Departure Time of Disposition: 23:52 Impression: Primary Impression: Pulmonary embolism Disposition: ADMITTED INPATIENT Condition: Stable Critical Care Note Critical Care Time?: No Stability Stability form required: No Heart Score Heart Score: Heart Score Response (Comments) Value History N/A 0 EKG N/A 0 Age N/A 0 Risk Factors N/A 0 Troponin N/A 0 Total 0 I personally scribed for SHELBI MCCONNELL MD ([email or web address]) on 04/14/25 at 19:02. Electronically submitted by Jah Lara ([email or web address]). SHELBI MCCONNELL MD Apr 14, 2025 19:02
[2025-04-14] MEDS ORDERED: SODIUM CHLORIDE 0.9% 1,000 ML IV ONE (20:00)
[2025-04-14 20:22] LABS: Chloride 105 mmol/L (98-107); Hematocrit 42.5 % (36.0-46.0); Hemoglobin 14.6 g/dL (12.2-16.2); Mean Corpuscular Hemoglobin 32.1 pg (28.0-32.0); Mean Corpuscular Volume 93.4 fL (80.0-100.0); Nucleated Red Blood Cells % 0.0 %; Sodium 141 mmol/L (136-145)
[2025-04-14 20:23] LABS: Anion Gap 7 (5-15); Carbon Dioxide 29 mmol/L (20-31)
[2025-04-14 20:28] LABS: Glucose 102 mg/dL (74-106)
[2025-04-14 20:29] LABS: Calcium 8.5 mg/dL (8.7-10.4); Potassium 3.3 mmol/L (3.5-5.1)
[2025-04-14] MEDS: SODIUM CHLORIDE 0.9% 1,000 ML IV ONE ×2 (20:52→21:43)
[2025-04-14 21:02] LABS: Urine Protein, UAD 3+ (Negative)
[2025-04-14 21:06] LABS: BUN/Creatinine Ratio 8.8 (10.0-20.0); Blood Urea Nitrogen 5 mg/dL (9-23)
[2025-04-14] MEDS: ACETAMINOPHEN 325 MG TAB PO ONE (21:40)
[2025-04-14] MEDS: POTASSIUM CHL 20 Meq TABLET PO ONE (22:22)
[2025-04-14] MEDS: IOHEXOL 350 MG/ML 100ML IJ ONE (22:26)
--- NOTE | 2025-04-14 23:26 | DVH ---
EXAM: CT CT ANGIO CHEST CONTRAST History: CP, SOB, elev D-dimer, r/o PE Comparison Study: None TECHNIQUE: A digital nautical instrument mechanic image was obtained. During the uneventful, intravenous administration of contrast material, multislice data acquisition was obtained through the chest. 3-D postprocessing is performed by technologist including MIP imaging Radiation Dose : CTDI vol 8.5 mGy, DLP 309.0 mGy*cm. FINDINGS: Evaluation is degraded by respiratory motion. Lungs: There are dense opacities most pronounced within the right lower lobe. Scattered additional atelectasis/ scarring is seen throughout the lungs. Pleura: Small right pleural effusion Heart/Great vessels: No cardiomegaly or pericardial effusion. There are filling defects within the distal aspect of the right main pulmonary artery extending into the segmental and subsegmental branches of the right middle and lower lobe pulmonary arteries. No CT evidence of right heart strain. The aorta is unremarkable. Mediastinum: Unremarkable. Soft tissues/Bones: Unremarkable Upper abdomen: Unremarkable. IMPRESSION: 1. Right-sided pulmonary emboli as detailed. No CT evidence of right heart strain. 2. Dense pulmonary opacities most pronounced within the right lower lobe may reflect an infectious/inflammatory process in the appropriate clinical setting. Pulmonary infarcts cannot be entirely excluded. Follow-up to resolution is suggested. 3. Small right pleural effusion. Critical Result: Pumonary Emboli Findings discussed with SHELBI MCCONNELL at 04/14/2025 11:20 PM, and acknowledged receipt and understanding of the findings.
[2025-04-14] MEDS ORDERED: MORPHINE SULFATE INJ 2 MG/ml SYRG IV PRN (23:45)
[2025-04-14] MEDS ORDERED: NITROGLYCERIN 0.4 MG SL TAB SL PRN (23:45)
[2025-04-14] MEDS ORDERED: ONDANSETRON HCL 4 MG/2 ML VIAL IV PRN (23:45)
[2025-04-14] MEDS ORDERED: DOCUSATE SOD 100 MG CAP PO PRN (23:45)
[2025-04-14] MEDS ORDERED: ACETAMINOPHEN 325 MG TAB PO PRN (23:45)
--- NOTE | 2025-04-14 23:52 | DVHHP2 ---
History of Present Illness Reason for Visit: Lower back pain History of Present Illness The patient is a 29-year-old female with past medical history of UTIs, kidney stones, and bilateral leg DVT who presented to [facility] ED with complaint of back pain. Patient reports that she recently had the DVT 3 months ago, currently on Lovenox. Patient states that she just gave via normal vaginal delivery 3 weeks ago, now experiencing sharp right lower back pain, radiating to her right shoulder, associated shortness of breath, and worsens when she lays down on her right side for the past 2 days. Patient was seen and evaluated in the ED, laboratory data shows WBC 12.0, platelets 388, sodium 141, potassium 3.3, BUN 5, creatinine 0.57, GFR 125, glucose 102, calcium 8.5, D- dimer 9.68, blood pressure 120/101, heart rate 112, temperature 98.3 F, O2 saturation 96% on oxygen. CT Angiography revealing right-sided pulmonary emboli; dense pulmonary opacities most pronounced within the right lower lobe may reflect an inflammatory/infectious process, pulmonary infarct can not be enti rely excluded. Patient was started on Lovenox 60 mg q.12, please see medication orders section in the computer. On my assessment, patient denies chest pain, no headache, dizziness, diaphoresis, currently on oxygen, no diarrhea, nausea, vomiting, fever, no chills. Patient was admitted for further evaluation and medical management. Past Medical History Kidney Stones, UTI'S, DVT Past Surgical History Denies all surgeries Family History Reviewed, noncontributory to the management of this case. Past Social History The patient lives at home, smokes cigarettes, drinks alcohol occasionally, uses marijuana. Review of Systems Constitutional: Yes: Weakness; No: Fever, Chills, Sweats, Malaise, Other Eyes: No: Pain, Vision change, Conjunctivae inflammation, Eyelid inflammation, Other, Redness ENT: No: Ear pain, Ear discharge, Nose pain, Nose discharge, Nose congestion, Mouth pain, Mouth swelling, Throat pain, Throat swelling, Other Respiratory: Shortness of breath; No: Cough, Dry, SOB with excertion, Wheezing, Hemoptysis, Pleuritic Pain, Sputum, Wheezing, Other Cardiovascular: No: Chest Pain, Palpitations, Orthopnea, Paroxysmal Noc. Dyspnea, Edema, Lt Headedness, Other Gastrointestinal: No: Nausea, Vomiting, Abdominal Pain, Diarrhea, Constipation, Melena, Hematochezia, Other Genitourinary: No Dysuria, No Frequency, No Incontinence, No Hematuria, No Retention, No Other Musculoskeletal: back pain; No: other, neck pain, shoulder pain, arm pain, hand pain, leg pain, foot pain Skin: No: Rash, Lesions, Jaundice, Bruising, Other Neurological: No: Weakness, Numbness, Incoordination, Change in speech, Confusion, Seizures, Other Allergies: Coded Allergies: NO KNOWN ALLERGIES (Unverified , 07/28/18) Exam Vital Signs Vital Signs Date Time Temp Pulse Resp B/P (MAP) Pulse Ox O2 Delivery O2 Flow Rate FiO2 04/14/25 21:40 98.3 04/14/25 20:41 120 20 120/101 (107) 95 04/14/25 19:13 Room Air General Appearance: Alert, Oriented X3, Cooperative, No acute distress HEENT: Atraumatic, PERRLA, EOMI, Mucous membr. moist/pink Respiratory: Normal air movement, Other (Diminished breath sounds) Cardiovascular: Regular rate, Normal S1, Normal S2, No murmurs Abdominal: Normal bowel sounds, Soft, No tenderness, No hepatospenomegaly, No masses Extremities: No clubbing, No cyanosis, No edema, Normal pulses, No tenderness/swelling Skin: No rashes, No breakdown, No significant lesion Neuro: Normal speech, Normal tone, Sensation intact, Cranial nerves 3-12 NL, Reflexes 2+, Other (Generalized weakness) Psych/Mental Status: Mental status NL, Mood NL Labs/Xrays Labs Test 04/14/25 20:07 04/14/25 19:51 04/14/25 18:56 Range/Units Lactic Acid Level 0.6 0.4-2.0 mmol/L Urine Color Light-yellow Yellow Urine Clarity Turbid H Clear Urine pH 6.5 5.0-9.0 Urine Specific [place] 1.014 1.001-1.035 Urine Protein 3+ H Negative Urine Ketones Negative Negative Urine Blood 2+ H Negative /uL Urine Nitrite Negative Negative Urine Bilirubin Negative Negative Urine Urobilinogen Normal Negative mg/dL Urine Leukocyte Esterase 3+ Negative /uL Urine RBC 24 0 - 4 /hpf Urine Microscopic WBC 106 H 0-5 /HPF Urine Squamous Epithelial Cells Few <5 /hpf Urine Bacteria None seen None Seen /hpf Urine Hyaline Casts Few 0 - 2 /lpf Urine Glucose Normal Normal mg/dL White Blood Count 12.0 H 4.4-10.8 10^3/uL Red Blood Count 4.55 4.0-5.20 10^6/uL Hemoglobin 14.6 12.2-16.2 g/dL Hematocrit 42.5 36.0-46.0 % Mean Corpuscular Volume 93.4 80.0-100.0 fL Mean Corpuscular Hemoglobin 32.1 H 28.0-32.0 pg Mean Corpuscular Hemoglobin Concent 34.3 32.0-36.0 g/dL Red Cell Distribution Width 13.8 11.8-14.3 % Platelet Count 388 140-450 10^3/uL Mean Platelet Volume 7.6 6.9-10.8 fL Neutrophils (%) (Auto) 71.8 37.0-80.0 % Lymphocytes (%) (Auto) 20.9 10.0-50.0 % Monocytes (%) (Auto) 5.0 0.0-12.0 % Eosinophils (%) (Auto) 1.8 0.0-7.0 % Basophils (%) (Auto) 0.5 0.0-2.0 % Neutrophils # (Auto) 8.6 1.6-8.6 10 ^3/uL Lymphocytes # (Auto) 2.5 0.4-5.4 10 ^3/uL Monocytes # (Auto) 0.6 0-1.3 10 ^3/uL Eosinophils # (Auto) 0.2 0-0.8 10 ^3/uL Basophils # (Auto) 0.1 0-0.2 10 ^3/uL Nucleated Red Blood Cells 0.0 % D-Dimer, Quantitative 9.68 H 0.0-0.49 mg/L FEU Sodium Level 141 136-145 mmol/L Potassium Level 3.3 L 3.5-5.1 mmol/L Chloride Level 105 98-107 mmol/L Carbon Dioxide Level 29 20-31 mmol/L Anion Gap 7 5-15 Blood Urea Nitrogen 5 L 9-23 mg/dL Creatinine 0.57 0.550-1.02 mg/dL Glomerular Filtration Rate Calc 125 >90 mL/min BUN/Creatinine Ratio 8.8 L 10.0-20.0 Serum Glucose 102 74-106 mg/dL Calcium Level 8.5 L 8.7-10.4 mg/dL PATIENT: BRUNO MACKAY ACCT: [id number] UNIT: [id number] : 1995 LOC: ER ROOM / BED: / AGE / SEX: 29 / F ADM STATUS: REG ER SERVICE 46 ORDERING PHYSICIAN: SHELBI MCCONNELL MD PROCEDURE(s): CTACH - CT ANGIO CHEST CONTRAST REASON: CP, SOB, elev D-dimer, r/o PE ORDER NUMBER(s): [id number], ACCESSION NUMBER(s): [id number] EXAM: CT CT ANGIO CHEST CONTRAST History: CP, SOB, elev D-dimer, r/o PE Comparison Study: None TECHNIQUE: A digital real estate leasing agent image was obtained. During the uneventful, intravenous administration of contrast material, multislice data acquisition was obtained through the chest. 3-D postprocessing is performed by technologist including MIP imaging Radiation Dose : CTDI vol 8.5 mGy, DLP 309.0 mGy*cm. FINDINGS: Evaluation is degraded by respiratory motion. Lungs: There are dense opacities most pronounced within the right lower lobe. Scattered additional atelectasis/scarring is seen throughout the lungs. Pleura: Small right pleural effusion Heart/Great vessels: No cardiomegaly or pericardial effusion. There are filling defects within the distal aspect of the right main pulmonary artery extending into the segmental and subsegmental branches of the right middle and lower lobe pulmonary arteries. No CT evidence of right heart strain. The aorta is unremarkable. Mediastinum: Unremarkable. Soft tissues/Bones: Unremarkable Upper abdomen: Unremarkable. IMPRESSION: 1. Right-sided pulmonary emboli as detailed. No CT evidence of right heart strain. 2. Dense pulmonary opacities most pronounced within the right lower lobe may reflect an infectious/inflammatory process in the appropriate clinical setting. Pulmonary infarcts cannot be entirely excluded. Follow-up to resolution is suggested. 3. Small right pleural effusion. Critical Result: Pumonary Emboli SEPSIS Sepsis Screen Date sepsis recognized/suspect: Apr 14, 2025 Time Sepsis recognized/suspect: 1915 Recent Procedure: Yes On Antibiotic Therapy: Yes Respiratory Rate >20: No Heart Rate >90: Yes Temp<36 C (96.8 F) or >38.3 C: No SBP <90 or MAP <65 mmHG: No New Acute Mental Status Change: No Is the patient on CPAP, BIPAP,: No Physician Orders Saline Lock (04/14/25 19:47) Ct Angio Chest Contrast (04/14/25 19:47) Blood Culture (04/14/25 19:47) Sodium Chloride 0.9% (04/14/25 21:00) Potassium Er Tablet (Klor-Con Tablet) (04/14/25 23:45) Ceftriaxone Ivpb Rocephin (04/15/25 09:00) Ceftriaxone Ivpb Rocephin (04/14/25 23:45) Chest Without Contrast (04/14/25 23:43) Enoxaparin Sodium (Lovenox) (04/15/25 10:00) Admit (04/14/25 23:43) Allergies (04/14/25 23:43) Code Status (04/14/25 23:43) Sodium Chloride Lock (Saline Lock Ns) (04/15/25 06:00) Oxygen Per Hour (04/14/25 23:43) Hydrocodone-Acet 5/325mg Tab ([place] 5/32 (04/14/25 23:45) Ondansetron Hcl (Zofran) (04/14/25 23:45) Docusate Sodium Capsule (Colace Capsule) (04/14/25 23:45) Complete Blood Count (04/15/25 04:00) Comprehensive Metabolic Panel (04/15/25 04:00) Cardiac Diet-2gna,Lofat,Lochol (04/15/25 Breakfast) Condition: Serious (04/14/25 23:43) Acetaminophen Tablet (Tylenol Tablet) (04/14/25 23:45) Vital Signs Date Time Temp Pulse Resp B/P (MAP) Pulse Ox O2 Delivery O2 Flow Rate FiO2 04/14/25 21:40 98.3 04/14/25 20:41 98.4 120 20 120/101 (107) 95 98.4 04/14/25 19:13 120 17 95 Room Air 04/14/25 19:13 99.0 120 17 135/91 (106) 95 99.0 04/14/25 18:25 99.0 146 18 124/95 95 99.0 Laboratory Tests Test 04/14/25 18:56 04/14/25 20:07 White Blood Count 12.0 10^3/uL (4.4-10.8) H Lactic Acid Level 0.6 mmol/L (0.4-2.0) Medications Medications Dose Ordered Sig/Segundo Route Start Time Stop Time Status Last Admin Dose Admin Acetaminophen 650 mg ONCE ONCE PO 04/14/25 21:30 04/14/25 21:31 DC 04/14/25 21:40 650 MG Potassium Chloride 40 meq ONCE ONCE PO 04/14/25 22:00 04/14/25 22:01 DC 04/14/25 22:22 40 MEQ Sodium Chloride 1,000 ml @ 1,000 mls/hr Q1H ONCE IV 04/14/25 20:00 04/14/25 20:59 DC 04/14/25 20:52 1,000 MLS/HR Assessment/Plan Assessment/Plan Pulmonary embolism Acute respiratory distress Low back pain Generalized weakness Plan 1. Admit to telemetry unit 2. Breathing treatment 3. Pain control management 4. Management of fluids and electrolytes 5. Consultation for hospitalist 6. Diagnostic tests CT Angiography 7. DVT prophylaxis-on Lovenox 8. Repeat labs CBC, CMP in a.m. 9. Continue with current medical management 10. Treatment plan discussed with patient and RN. Patient verbalized understanding. Plan discussed with: Patient, Other (Generalized weakness) My Orders Orders - ROVERTO MOSES DNP Procedure Category Date Status Time Potassium Er Tablet PHA 04/14/25 Verified (Klor-Con Tablet) 23:45 Ceftriaxone Ivpb PHA 04/15/25 Verified Rocephin 09:00 Ceftriaxone Ivpb PHA 04/14/25 Verified Rocephin 23:[address] 04/14/25 Verified 23:43 Enoxaparin Sodium PHA 04/15/25 Verified (Lovenox) 10:00 Admit ADMIT 04/14/25 Verified 23:43 Allergies NATAN 04/14/25 Verified 23:43 Code Status CODE 04/14/25 Verified 23:43 Sodium Chloride Lock PHA 04/15/25 Verified (Saline Lock Ns) 06:00 Oxygen Per Hour RT 04/14/25 Verified 23:43 Hydrocodone-Acet PHA 04/14/25 Verified 5/325mg Tab ([place] 23:45 Ondansetron Hcl PHA 04/14/25 Verified (Zofran) 23:45 Docusate Sodium PHA 04/14/25 Verified Capsule (Colace 23:45 Complete Blood Count LAB 04/15/25 Verified 04:00 Comprehensive LAB 04/15/25 Verified Metabolic Panel 04:00 Cardiac DIET 04/15/25 Verified Diet-2gna,Lofat,Lochol Breakfast Condition: Serious NATAN 04/14/25 Verified 23:43 Acetaminophen Tablet PHA 04/14/25 Verified (Tylenol Tablet) 23:45 Problem List: (1) Pulmonary embolism (2) Acute respiratory distress (3) Lower back pain (4) Generalized weakness Date of Service: Apr 14, 2025 Billing Provider: ROVERTO MOSES DNP Common Visit Codes: [id number] INP/OBS CARE (HIGH) ROVERTO MOSES DNP Apr 14, 2025 23:52
[2025-04-15] VITALS (8 sets, daily range): BP systolic 115–124; BP diastolic 79–87; PULSE 84–116; RESP 16–22; TEMP 97.5–99.3; O2SAT 91–96
[2025-04-15] MEDS: POTASSIUM CHL 20 Meq TABLET PO ONE (00:21)
[2025-04-15] MEDS: HYDROcodone-ACET 5/325MG TAB PO PRN (02:11)
[2025-04-15 03:27] LABS: Hematocrit 38.8 % (36.0-46.0); Hemoglobin 13.2 g/dL (12.2-16.2); Mean Corpuscular Hemoglobin 32.2 pg (28.0-32.0); Mean Corpuscular Volume 94.3 fL (80.0-100.0); Nucleated Red Blood Cells % 0.1 %
[2025-04-15 03:48] LABS: Alkaline Phosphatase 102 U/L (46-116); Anion Gap 8 (5-15); Carbon Dioxide 28 mmol/L (20-31); Chloride 106 mmol/L (98-107); Glucose 86 mg/dL (74-106); Potassium 4.0 mmol/L (3.5-5.1); Sodium 142 mmol/L (136-145)
[2025-04-15 04:01] LABS: Alanine Aminotransferase < 9 U/L (7-40); Albumin 2.8 g/dL (3.2-4.8); BUN/Creatinine Ratio 10.9 (10.0-20.0); Bilirubin, Total < 0.2 mg/dL (0.2-1.0); Blood Urea Nitrogen < 5 mg/dL (9-23); Calcium 7.9 mg/dL (8.7-10.4); Total Protein 5.2 g/dL (5.7-8.2)
[2025-04-15] MEDS ORDERED: NIFE1TAB31 PO (05:40)
[2025-04-15] MEDS ORDERED: ENOX60IN7 SC (05:40)
[2025-04-15] MEDS ORDERED: SERT25TA28 PO (05:40)
[2025-04-15] MEDS ORDERED: FER325T PO (05:40)
[2025-04-15] MEDS ORDERED: LEVO50TA7 PO (05:40)
[2025-04-15] MEDS: ENOXAPARIN SOD 60 MG/0.6 ML SYRINGE SC ONE (05:45)
[2025-04-15] MEDS: SODIUM CHLOR 0.9% PF (SALINE LOCK) 10ML VIAL/SYR IV SCH (06:09)
[2025-04-15] MEDS ORDERED: ENOXAPARIN SOD 60 MG/0.6 ML SYRINGE SC ONE (16:00)
--- NOTE | 2025-04-15 17:39 | DVHPN2 ---
Subjective Patient without complaints of chest pain or shortness for breath at present. Getting out of bed to the chair. Patient has a history of DVT and PEs. Apparently she is on Lovenox injections for this due to being and delivered her baby recently. Changes from previous H/P or p: No Changes Eyes: No Pain, No Vision change, No Conjunctivae inflammation, No Eyelid inflammation, No Other, No Redness ENT: No Ear pain, No Ear discharge, No Nose pain, No Nose discharge, No Nose congestion, No Mouth pain, No Mouth swelling, No Throat pain, No Throat swelling, No Other Cardiovascular: No Chest Pain, No Palpitations, No Orthopnea, No Paroxysmal Noc. Dyspnea, No Edema, No Lt Headedness, No Other Respiratory: No Cough, No Dry; Shortness of breath; No SOB with excertion, No Wheezing, No Hemoptysis, No Pleuritic Pain, No Sputum, No Other Gastrointestinal: No Nausea, No Vomiting, No Abdominal Pain, No Diarrhea, No Constipation, No Melena, No Hematochezia, No Other Genitourinary: No Dysuria, No Frequency, No Incontinence, No Hematuria, No Retention, No Other Musculoskeletal: No other, No neck pain, No shoulder pain, No arm pain; back pain; No hand pain, No leg pain, No foot pain Skin: No Rash, No Lesions, No Jaundice, No Bruising, No Other Objective Vitals Vital Signs Date Time Temp Pulse Resp B/P (MAP) Pulse Ox O2 Delivery O2 Flow Rate FiO2 04/15/25 17:00 98.5 86 17 119/87 (98) 94 98.5 04/15/25 08:00 Room Air* 0 21 Intake/Output Intake and Output 04/15/25 07:00 Intake Total 0 ml Balance 0 ml Intake Oral 0 ml Exam Alert awake oriented x3. Comfortable in bed without distress. HEENT neck supple no JVD. Heart regular rate and rhythm. S1 plus S2. Lungs fair air movement without rales wheezes. Abdomen soft nontender positive bowel sounds. Extremities no edema positive pulses Medications Current Medications Medications Dose Ordered Sig/Segundo Route Start Time Stop Time Status Last Admin Dose Admin Ceftriaxone Sodium 50 ml @ 100 mls/hr DAILY@2100 IV 04/15/25 21:00 Enoxaparin Sodium 60 mg Q12HR SC 04/15/25 22:00 Sodium Chloride 10 ml Q8HR IV 04/15/25 06:00 04/15/25 13:53 10 ML Acetaminophen/ Hydrocodone Bitart 1 tab Q4HP PRN PO 04/14/25 23:45 04/15/25 10:36 1 TAB Ondansetron HCl 4 mg Q4HP PRN IV 04/14/25 23:45 Docusate Sodium 100 mg BIDPRN PRN PO 04/14/25 23:45 Acetaminophen 650 mg Q6HP PRN PO 04/14/25 23:45 Enoxaparin Sodium 60 mg Q12HR SC 04/15/25 22:00 UNV Laboratory Results Laboratory Tests 04/15/25 03:04 Chemistry Test 04/14/25 18:56 04/15/25 03:04 Calcium Level 8.5 mg/dL (8.7-10.4) L 7.9 mg/dL (8.7-10.4) L Albumin 2.8 g/dL (3.2-4.8) L Total Protein 5.2 g/dL (5.7-8.2) L Coagulation Test 04/14/25 18:56 D-Dimer, Quantitative 9.68 mg/L FEU (0.0-0.49) H LFT Test 04/15/25 03:04 Alanine Aminotransferase (ALT) < 9 U/L (7-40) Alkaline Phosphatase 102 U/L (46-116) Aspartate Amino Transferase (AST) 15 U/L (13-40) Total Bilirubin < 0.2 mg/dL (0.2-1.0) L Urinalysis Test 04/14/25 19:51 Urine Color Light-yellow (Yellow) Urine Clarity Turbid (Clear) H Urine pH 6.5 (5.0-9.0) Urine Specific [place] 1.014 (1.001-1.035) Urine Protein 3+ (Negative) H Urine Ketones Negative (Negative) Urine Blood 2+ /uL (Negative) H Urine Nitrite Negative (Negative) Urine Bilirubin Negative (Negative) Urine Urobilinogen Normal mg/dL (Negative) Urine Leukocyte Esterase 3+ /uL (Negative) Urine RBC 24 /hpf (0 - 4) Urine Microscopic WBC 106 /HPF (0-5) H Urine Squamous Epithelial Cells Few /hpf (<5) Urine Bacteria None seen /hpf (None Seen) Urine Hyaline Casts Few /lpf (0 - 2) Urine Glucose Normal mg/dL (Normal) Assessment/Plan Assessment/Plan Right-sided lower back pain is probably related to her acute PE. Patient will be continued on Lovenox injections. I will order ultrasound of the legs to further evaluate her DVTs. Patient if remained stable overnight consider discharge home tomorrow with a continue Lovenox injections and outpatient follow up with the Hematology for hypercoagulable workup. Patient is already aware of this. Continue pain medications as needed. Discussed with the patient along with the nurse at bedside regarding her care plan. Plan discussed with: Patient, Other Problem List: (1) DVT (deep vein thrombosis) in (2) Pulmonary embolism (3) Generalized weakness (4) Lower back pain Date of Service: Apr 15, 2025 Billing Provider: DARREL RUIZ MD Common Visit Codes: [id number] INP/OBS CARE(MOD) DARREL RUIZ MD Apr 15, 2025 17:39
--- NOTE | 2025-04-15 18:52 | DVH ---
BILATERAL LOWER EXTREMITY VENOUS DUPLEX REASON FOR EXAMINATION: History of DVT/PE. The patient is currently taking blood thinners. COMPARISON: US RT LOWER DVT on DOS: 08/05/24 TECHNIQUE: Using real-time freeze-frame technique with a high-frequency transducer, multiple longitudinal and transverse sections were obtained. Simultaneous color flow and spectral Doppler imaging was performed. The deep veins from the popliteal fossa to the groin were evaluated. FINDINGS: There is echogenic, nonocclusive, chronic-appearing thrombus in the right common femoral vein. The deep veins of the right lower extremity appear otherwise compressible and free of intraluminal thrombus and demonstrate normal color flow and phasicity. The visualized portion of the right greater saphenous vein appears compressible and free of thrombus. There is echogenic, nonocclusive, chronic-appearing thrombus in the left common femoral vein which extends into the upper greater saphenous vein. There is occlusive thrombus in the upper portion of the left femoral vein. The midportion and inferior portion of the left femoral vein and the left popliteal vein appear compressible, free of intraluminal thrombus, and with normal phasicity and color flow. IMPRESSION: There is echogenic, nonocclusive, chronic-appearing thrombus in the right common femoral vein. The visualized upper portion of the right greater saphenous vein appears compressible and free of thrombus. There is echogenic, nonocclusive, chronic-appearing thrombus in the left common femoral vein which extends into the upper greater saphenous vein. Occlusive thrombus in the upper portion of the left femoral vein. The lower portions of the left femoral vein in the left popliteal vein appear free of thrombus. DEEP VENOUS THROMBOSIS Critical Result: DVT Findings discussed with Cheli, the nurse caring for the patient at 04/15/2025 06:47 PM, and acknowledged receipt and understanding of the findings. She is relaying the findings to the physician immediately. #CRITICAL#
[2025-04-15] MEDS ORDERED: ENOXAPARIN SOD 60 MG/0.6 ML SYRINGE SC SCH (22:00)
[2025-04-15] MEDS: ENOXAPARIN SOD 60 MG/0.6 ML SYRINGE SC SCH (22:00)
[2025-04-16] VITALS (7 sets, daily range): BP systolic 116–141; BP diastolic 75–99; PULSE 84–102; RESP 16–18; TEMP 97.8–99.5; O2SAT 91–93
[2025-04-16 05:47] LABS: Hematocrit 36.9 % (36.0-46.0); Hemoglobin 12.6 g/dL (12.2-16.2); Mean Corpuscular Hemoglobin 31.8 pg (28.0-32.0); Mean Corpuscular Volume 93.4 fL (80.0-100.0); Nucleated Red Blood Cells % 0.0 %
[2025-04-16 05:48] LABS: Chloride 106 mmol/L (98-107); Potassium 3.8 mmol/L (3.5-5.1); Sodium 143 mmol/L (136-145)
[2025-04-16 05:49] LABS: Anion Gap 9 (5-15); Carbon Dioxide 28 mmol/L (20-31)
[2025-04-16 05:55] LABS: BUN/Creatinine Ratio 12.5 (10.0-20.0); Glucose 89 mg/dL (74-106)
[2025-04-16 05:58] LABS: INR 0.99 (0.9-1.15); Partial Thromboplastin Time 33.7 SEC (24.5-34.5); Prothrombin Time 10.5 sec (9.3-11.8)
[2025-04-16 06:05] LABS: Blood Urea Nitrogen 6 mg/dL (9-23); Calcium 8.3 mg/dL (8.7-10.4)
[2025-04-16] MEDS ORDERED: CEFD300C2 PO (15:05)
--- NOTE | 2025-04-16 15:06 | DVHDS2 ---
Discharge Summary Date of Admission Apr 14, 2025 at 23:43 Date of Discharge: Apr 16, 2025 Labs/Diagnostic Data: Laboratory Results Test 04/16/25 02:51 04/15/25 03:04 04/14/25 20:07 04/14/25 19:51 White Blood Count 9.6 10^3/uL (4.4-10.8) Red Blood Count 3.95 10^6/uL (4.0-5.20) Hemoglobin 12.6 g/dL (12.2-16.2) Hematocrit 36.9 % (36.0-46.0) Mean Corpuscular Volume 93.4 fL (80.0-100.0) Mean Corpuscular Hemoglobin 31.8 pg (28.0-32.0) Mean Corpuscular Hemoglobin Concent 34.1 g/dL (32.0-36.0) Red Cell Distribution Width 13.2 % (11.8-14.3) Platelet Count 342 10^3/uL (140-450) Mean Platelet Volume 7.2 fL (6.9-10.8) Neutrophils (%) (Auto) 57.8 % (37.0-80.0) Lymphocytes (%) (Auto) 29.7 % (10.0-50.0) Monocytes (%) (Auto) 6.0 % (0.0-12.0) Eosinophils (%) (Auto) 5.7 % (0.0-7.0) Basophils (%) (Auto) 0.8 % (0.0-2.0) Neutrophils # (Auto) 5.5 10 ^3/uL (1.6-8.6) Lymphocytes # (Auto) 2.8 10 ^3/uL (0.4-5.4) Monocytes # (Auto) 0.6 10 ^3/uL (0-1.3) Eosinophils # (Auto) 0.5 10 ^3/uL (0-0.8) Basophils # (Auto) 0.1 10 ^3/uL (0-0.2) Nucleated Red Blood Cells 0.0 % Prothrombin Time 10.5 sec (9.3-11.8) Prothrombin Time INR 0.99 (0.9-1.15) Activated Partial Thromboplast Time 33.7 SEC (24.5-34.5) Sodium Level 143 mmol/L (136-145) Potassium Level 3.8 mmol/L (3.5-5.1) Chloride Level 106 mmol/L (98-107) Carbon Dioxide Level 28 mmol/L (20-31) Anion Gap 9 (5-15) Blood Urea Nitrogen 6 mg/dL (9-23) Creatinine 0.48 mg/dL (0.550-1.02) Glomerular Filtration Rate Calc 130 mL/min (>90) BUN/Creatinine Ratio 12.5 (10.0-20.0) Serum Glucose 89 mg/dL (74-106) Calcium Level 8.3 mg/dL (8.7-10.4) Total Bilirubin < 0.2 mg/dL (0.2-1.0) Aspartate Amino Transferase (AST) 15 U/L (13-40) Alanine Aminotransferase (ALT) < 9 U/L (7-40) Alkaline Phosphatase 102 U/L (46-116) Total Protein 5.2 g/dL (5.7-8.2) Albumin 2.8 g/dL (3.2-4.8) Lactic Acid Level 0.6 mmol/L (0.4-2.0) Urine Color Light-yellow (Yellow) Urine Clarity Turbid (Clear) Urine pH 6.5 (5.0-9.0) Urine Specific [place] 1.014 (1.001-1.035) Urine Protein 3+ (Negative) Urine Ketones Negative (Negative) Urine Blood 2+ /uL (Negative) Urine Nitrite Negative (Negative) Urine Bilirubin Negative (Negative) Urine Urobilinogen Normal mg/dL (Negative) Urine Leukocyte Esterase 3+ /uL (Negative) Urine RBC 24 /hpf (0 - 4) Urine Microscopic WBC 106 /HPF (0-5) Urine Squamous Epithelial Cells Few /hpf (<5) Urine Bacteria None seen /hpf (None Seen) Urine Hyaline Casts Few /lpf (0 - 2) Urine Glucose Normal mg/dL (Normal) Test 04/14/25 18:56 D-Dimer, Quantitative 9.68 mg/L FEU (0.0-0.49) Other Laboratory Tests 04/16/25 02:51 Brief Hx & Hospital Course: The patient is a 29-year-old female with past medical history of UTIs, kidney stones, and bilateral leg DVT who presented to [facility] ED with complaint of back pain. Patient reports that she recently had the DVT 3 months ago, currently on Lovenox. Patient states that she just gave via normal vaginal delivery 3 weeks ago, now experiencing sharp right lower back pain, radiating to her right shoulder, associated shortness of breath, and worsens when she lays down on her right side for the past 2 days. Patient was seen and evaluated in the ED, laboratory data shows WBC 12.0, platelets 388, sodium 141, potassium 3.3, BUN 5, creatinine 0.57, GFR 125, glucose 102, calcium 8.5, D- dimer 9.68, blood pressure 120/101, heart rate 112, temperature 98.3 F, O2 saturation 96% on oxygen. CT Angiography revealing right-sided pulmonary emboli; dense pulmonary opacities most pronounced within the right lower lobe may reflect an inflammatory/infectious process, pulmonary infarct can not be entirely excluded. Patient was started on Lovenox 60 mg q.12, please see medication orders section in the computer. On my assessment, patient denies chest pain, no headache, dizziness, diaphoresis, currently on oxygen, no diarrhea, nausea, vomiting, fever, no chills. Patient was admitted for further evaluation and medical management. She is admitted and had ultrasound of the legs also confirmed chronic DVT along with the chronic PE on the CT angiogram. Patient treated with the Lovenox injections. Blood cultures negative for any growth. Urinalysis showed a UTI. Sodus her symptoms were related to possible UTI as well as PE. She received fluids antibiotics empiric treatment pain medications. She is oxygenating normally on room air. Telemetry is normal. Her symptoms resolved feeling better. Therefore it is felt she could be safely discharged home. Patient is advised to continue her Lovenox as she is taking and have outpatient follow up with the chain hoist operator for hypercoagulable workup. Patient prescribed oral antibiotic to finish the UTI course. I have talked with the patient regarding hospital diagnosis, imaging results, discharge medications including side effects, discharge instructions and follow-up plan of care. She has verbalized understanding of these and agree with the care plan as outlined Consults/Reason for consult BILATERAL LOWER EXTREMITY VENOUS DUPLEX REASON FOR EXAMINATION: History of DVT/PE. The patient is currently taking blood thinners. COMPARISON: US RT LOWER DVT on DOS: 08/05/24 TECHNIQUE: Using real-time freeze-frame technique with a high-frequency transducer, multiple longitudinal and transverse sections were obtained. Simultaneous color flow and spectral Doppler imaging was performed. The deep veins from the popliteal fossa to the groin were evaluated. FINDINGS: There is echogenic, nonocclusive, chronic-appearing thrombus in the right common femoral vein. The deep veins of the right lower extremity appear otherwise compressible and free of intraluminal thrombus and demonstrate normal color flow and phasicity. The visualized portion of the right greater saphenous vein appears compressible and free of thrombus. There is echogenic, nonocclusive, chronic-appearing thrombus in the left common femoral vein which extends into the upper greater saphenous vein. There is occlusive thrombus in the upper portion of the left femoral vein. The midportion and inferior portion of the left femoral vein and the left popliteal vein appear compressible, free of intraluminal thrombus, and with normal phasicity and color flow. IMPRESSION: There is echogenic, nonocclusive, chronic-appearing thrombus in the right common femoral vein. The visualized upper portion of the right greater saphenous vein appears compressible and free of thrombus. There is echogenic, nonocclusive, chronic-appearing thrombus in the left common femoral vein which extends into the upper greater saphenous vein. Occlusive thrombus in the upper portion of the left femoral vein. The lower portions of the left femoral vein in the left popliteal vein appear free of thrombus. DEEP VENOUS THROMBOSIS Critical Result: DVT Findings discussed with Cheli, the nurse caring for the patient at 04/15/2025 06:47 PM, and acknowledged receipt and understanding of the findings. She is relaying the findings to the physician immediately. #CRITICAL# Operations or Procedures EXAM: CT CT ANGIO CHEST CONTRAST History: CP, SOB, elev D-dimer, r/o PE Comparison Study: None TECHNIQUE: A digital header dock image was obtained. During the uneventful, intravenous administration of contrast material, multislice data acquisition was obtained through the chest. 3-D postprocessing is performed by technologist including MIP imaging Radiation Dose : CTDI vol 8.5 mGy, DLP 309.0 mGy*cm. FINDINGS: Evaluation is degraded by respiratory motion. Lungs: There are dense opacities most pronounced within the right lower lobe. Scattered additional atelectasis/ scarring is seen throughout the lungs. Pleura: Small right pleural effusion Heart/Great vessels: No cardiomegaly or pericardial effusion. There are filling defects within the distal aspect of the right main pulmonary artery extending into the segmental and subsegmental branches of the right middle and lower lobe pulmonary arteries. No CT evidence of right heart strain. The aorta is unremarkable. Mediastinum: Unremarkable. Soft tissues/Bones: Unremarkable Upper abdomen: Unremarkable. IMPRESSION: 1. Right-sided pulmonary emboli as detailed. No CT evidence of right heart strain. 2. Dense pulmonary opacities most pronounced within the right lower lobe may reflect an infectious/inflammatory process in the appropriate clinical setting. Pulmonary infarcts cannot be entirely excluded. Follow-up to resolution is suggested. 3. Small right pleural effusion. Critical Result: Pumonary Emboli Findings discussed with SHELBI MCCONNELL at 04/14/2025 11:20 PM, and acknowledged receipt and understanding of the findings. Condition at Discharge: Stable Final Diagnosis/Problems List Acute UTI, chronic DVT/pulmonary embolism on Lovenox Problems List: (1) Pulmonary embolism Status: Acute (2) Generalized weakness (3) Acute respiratory distress (4) Lower back pain (5) DVT (deep vein thrombosis) in Discharge Disposition: Home Discharge Instruct/Medications Diet: Consistent carbohydrate, Cardiac 2g Na,low cholest Activity: No Restrictions, As Tolerated Follow Up/Referral: Primary care physician next week and chain hoist operator for further workup and evaluation of blood clots in 2-3 weeks Medications: Finish antibiotic as prescribed and continue other home medications as you were taking including Lovenox for blood clots Scheduled Cefdinir (Cefdinir), 1 CAP PO BID Enoxaparin Sodium (Enoxaparin Sodium), 60 MG SC Q12HR, (Reported) Ferrous Sulfate (Ferrous Sulfate), 325 MG PO DAILY, (Reported) Levothyroxine Sodium (Levothyroxine Sodium), 1 TAB PO DAILY, (Reported) Nifedipine (Nifedipine Er), 1 TAB PO DAILY, (Reported) Sertraline Hcl (Sertraline Hcl), 1 TAB PO DAILY, (Reported) Discharge Statement: "Patient was advised to return to the ER or call 911 if any headaches, dizziness, shortness of breath, chest pain, abdominal pain, bleeding, fevers, or worsening of medical condition. Patient was counseled about treatment plan, medications, possible side effects, patientverbalized understanding. All questions were answered to the best of my ability. This discharge took greater then 30 minutes in planning, reviewing documentation, counseling the patient, and discussing with other team members." ASSESSMENT ASSESSMENT Assessment Acute UTI, chronic DVT/pulmonary embolism on Lovenox Date of Service: Apr 16, 2025 Billing Provider: DARREL RUIZ MD Common Visit Codes: 70309-AIB/OBS DISCH DAY >30min DARREL RUIZ MD Apr 16, 2025 15:06
== END 2025-04-16 18:00 | disposition home or self-care (01) | DRG 463 ==
LOC: ER 18:22 → OVERFLOW 23:43 → TELE-WESTW 04-15 05:13
PROVIDERS: ADMIT Nurse Practitioner Family; ATTEND Nurse Practitioner Family
DX: N30.00 Acute cystitis without hematuria (principal); I27.82 Chronic pulmonary embolism; Z79.01 Long term (current) use of anticoagulants; R65.10 Systemic inflammatory response syndrome (SIRS) of non-infectious origin without acute organ dysfunction; I82.511 Chronic embolism and thrombosis of right femoral vein; F17.210 Nicotine dependence, cigarettes, uncomplicated; Z79.899 Other long term (current) drug therapy; Z87.442 Personal history of urinary calculi; Z83.3 Family history of diabetes mellitus
CPT/HCPCS: 36415; 71275; 80048; 80053; 81001; 83605; 85025; 85379; 85610; 85730; 87040; 93970; 96360; G0378